=== PATIENT | female | born 1980 | race Caucasian/White ===

== ENCOUNTER 2016-10-18 13:10 | Emergency (ER) | payer SELFPAY ==
[~2016-10-18] VITALS: Ht 177.8 cm; Wt 117.9 kg
[2016-10-18] MEDS ORDERED: SUPER B COMPLE150 MG PO (13:29)
[2016-10-18] MEDS ORDERED: VITAMIN D1000 IU PO (13:29)
[2016-10-18] MEDS ORDERED: PRILOSEC20 M1 PO (13:29)
[2016-10-18] MEDS ORDERED: MONODOX100 MG PO (15:20)
== END 2016-10-18 18:53 | disposition home or self-care (01) ==
LOC: ED 13:10
DX: J20.9 Acute bronchitis, unspecified (principal); F17.200 Nicotine dependence, unspecified, uncomplicated; Z71.6 Tobacco abuse counseling; Z88.0 Allergy status to penicillin; Z88.1 Allergy status to other antibiotic agents

== ENCOUNTER → 2022-09-30 | Outpatient (CLI) | payer SELFPAY ==
[~2022-09-30] MED LIST: MONODOX100 MG PO; PRILOSEC20 M1 PO; SUPER B COMPLE150 MG PO; VITAMIN D1000 IU PO
[2022-09-30 16:37] LABS: HEMATOCRIT 43.3 % (37.0-47.0); MEAN CELL VOLUME 99.3 fl (81.0-99.0); MEAN CORPUSCULAR HGB 34.6 pg (27.0-31.0); MEAN CORPUSCULAR HGB CONC 34.9 g/dl (33.0-37.0); MEAN PLATELET VOLUME 10.6 fl (9.6-12.3); RED BLOOD COUNT 4.36 10*6/uL (4.10-5.10); RED CELL DISTRI WIDTH 11.8 % (0-14.5); WHITE BLOOD COUNT 7.2 10*3/uL (4.8-10.8)
[2022-09-30 17:00] LABS: ALKALINE PHOSPHATASE 75 U/L (46-116); BUN 10 mg/dl (9-23); CHLORIDE 104 mmol/L (98-107); CHOLESTEROL 219 mg/dL (<200); CREATININE 0.77 mg/dL (0.55-1.02); LDL CHOLESTEROL 116 mg/dL (9-159); POTASSIUM 4.1 mmol/L (3.4-5.1); SGPT/ALT 30 U/L (10-49); SODIUM 138 mmol/L (136-145); TOTAL PROTEIN 7.9 gm/dL (6.0-8.0); TRIGLYCERIDES 236 mg/dl (<150)
== END | disposition home or self-care (01) ==
LOC: LAB 16:17
PROVIDERS: ATTEND Family Medicine
DX: I10 Essential (primary) hypertension (principal); R06.02 Shortness of breath; R05.9 Cough, unspecified; E78.00 Pure hypercholesterolemia, unspecified

== ENCOUNTER 2025-04-30 16:40 | Emergency (ER) | payer SELFPAY ==
[~2025-04-30] VITALS: Wt 99.8 kg
[2025-04-30] MEDS ORDERED: ATORVASTATIN CA20 M1 PO (17:03)
[2025-04-30] MEDS ORDERED: BUSPAR5 MG PO (17:03)
[2025-04-30] MEDS ORDERED: CITALOPRAM10 MG PO (17:03)
[2025-04-30] MEDS ORDERED: METOPROLOL SUCC25 M2 PO (17:04)
[2025-04-30 18:02] LABS: BASO # 0.0 10*3/uL (0.0-0.1); BASO % 0.3 % (0.0-1.0); EOS # 0.1 10*3/uL (0.0-0.4); EOS % 1.5 % (1.0-4.0); MEAN CELL VOLUME 104.2 fl (81.0-99.0); MEAN CORPUSCULAR HGB 36.4 pg (27.0-31.0); MEAN PLATELET VOLUME 9.9 fl (9.6-12.3); MONO # 0.5 10*3/uL (0.1-1.0); MONO % 9.0 % (3.0-9.0); NEUT # 3.6 10*3/uL (2.3-7.9); NEUT % 61.0 % (47.0-73.0); NUCLEATED RED BLOOD CELL 0.0 % (0.0-0.0); NUCLEATED RED BLOOD CELL 0.0 10*3/uL (0.0-0.0); PLATELET COUNT AUTOMATED 142 10*3/uL (130-400); RED CELL DISTRI WIDTH 13.8 % (0-14.5)
[2025-04-30 18:31] LABS: BUN 10 mg/dl (9-23)
[2025-05-01] MEDS ORDERED: ELIQUIS5 M2 PO (12:42)
== END 2025-04-30 19:29 | disposition home or self-care (01) ==
LOC: ED 16:40
PROVIDERS: Nurse Practitioner Family
DX: I82.401 Acute embolism and thrombosis of unspecified deep veins of right lower extremity (principal); F17.200 Nicotine dependence, unspecified, uncomplicated; Z79.899 Other long term (current) drug therapy; Z88.0 Allergy status to penicillin; Z88.1 Allergy status to other antibiotic agents

== ENCOUNTER 2025-05-01 11:24 | Emergency (ER) | payer SELFPAY ==
[~2025-05-01] VITALS: Ht 177.8 cm; Wt 99.8 kg
[~2025-05-01 11:24] MED LIST changes: +ATORVASTATIN CA20 M1 PO; +BUSPAR5 MG PO; +CITALOPRAM10 MG PO; +METOPROLOL SUCC25 M2 PO
[2025-05-01] MEDS ORDERED: ELIQUIS5 M2 PO (12:42)
== END 2025-05-01 13:15 | disposition home or self-care (01) ==
LOC: ED 11:24
DX: I82.441 Acute embolism and thrombosis of right tibial vein (principal); Z79.899 Other long term (current) drug therapy; Z88.0 Allergy status to penicillin; Z88.1 Allergy status to other antibiotic agents

== ENCOUNTER 2025-08-01 01:30 | Inpatient (IN) | payer SELFPAY ==
[~2025-08-01] VITALS: Ht 178 cm; Wt 100.0 kg
[2025-08-01] VITALS (16 sets, daily range): BP systolic 102–205; BP diastolic 68–91
[~2025-08-01 01:30] MED LIST changes: +ELIQUIS5 M2 PO
[2025-08-01] MEDS ORDERED: ELIQUIS5 M1 PO (01:57)
[2025-08-01 02:01] LABS: MEAN CELL VOLUME 112.5 fl (81.0-99.0); MEAN CORPUSCULAR HGB 40.3 pg (27.0-31.0); MEAN PLATELET VOLUME 9.7 fl (9.6-12.3); NUCLEATED RED BLOOD CELL 0.0 % (0.0-0.0); NUCLEATED RED BLOOD CELL 0.0 10*3/uL (0.0-0.0); PLATELET COUNT AUTOMATED 187 10*3/uL (130-400); RED CELL DISTRI WIDTH 13.5 % (0-14.5)
[2025-08-01 02:17] LABS: MANUAL DIFF REFLEX YES
[2025-08-01 02:21] LABS: BUN 8 mg/dl (9-23)
[2025-08-01 02:22] LABS: PLATELET SUFFICIENCY NORMAL (NORMAL)
[2025-08-01] MEDS ORDERED: SODIUM CHLORIDE 0.9% 1,000 ML IV ONE (02:25)
[2025-08-01] MEDS ORDERED: POTASSIUM CHLORIDE 20 MEQ TAB PO ONE ×2 (03:10→10:55)
[2025-08-01] MEDS ORDERED: MAGNESIUM SULFATE 50 ML IV ONE (03:10)
[2025-08-01] MEDS ORDERED: DILTIAZEM HCL IN NACL,ISO-OSM 100 ML IV SCH (03:45)
[2025-08-01] MEDS ORDERED: Acetaminophen/Hydrocodone 5 MG/325 MG TABLET PO PRN (05:20)
[2025-08-01] MEDS ORDERED: ACETAMINOPHEN 650 MG SUPP R PRN (05:20)
[2025-08-01] MEDS ORDERED: ACETAMINOPHEN 325 MG TAB PO PRN (05:20)
[2025-08-01] MEDS ORDERED: Ondansetron Hydrochloride 4 MG/2 ML VIAL IV PRN (05:20)
[2025-08-01] MEDS ORDERED: BISACODYL 5 MG TAB PO PRN (05:20)
[2025-08-01] MEDS ORDERED: BISACODYL 10 MG SUPP R PRN (05:20)
[2025-08-01] MEDS ORDERED: IOHEXOL 350 MG/ML 100 ML VIAL IV ONE ×2 (05:40→06:07)
[2025-08-01] MEDS ORDERED: SODIUM CHLORIDE 0.9% 100 ML BAG IV ONE (05:40)
[2025-08-01] MEDS ORDERED: SODIUM CHLORIDE 0.9% 100 ML IV ONE (06:07)
[2025-08-01] MEDS ORDERED: METHOCARBAMOL 750 MG TAB PO PRN (06:10)
[2025-08-01] MEDS ORDERED: hydrOXYzine 50 MG CAP PO PRN (06:10)
[2025-08-01] MEDS ORDERED: FOLIC ACID 1 MG TAB PO ONE (06:10)
[2025-08-01] MEDS ORDERED: Dicyclomine Hydrochloride 20 MG TAB PO PRN (06:10)
[2025-08-01] MEDS ORDERED: diazePAM 10 MG/2 ML SYR IV PRN (06:10)
[2025-08-01] MEDS ORDERED: MAGNESIUM SULFATE 100 ML IV ONE ×2 (06:10→07:15)
[2025-08-01] MEDS ORDERED: METOPROLOL SUCCINATE XR 50 MG TAB PO SCH (06:40)
[2025-08-01 07:02] LABS: VITAMIN D, 25-HYDROXY 36.6 ng/mL (30-100)
[2025-08-01 08:29] LABS: BUN 8 mg/dl (9-23); FREE T4 1.28 ng/dl (0.89-1.76); LDL CHOLESTEROL 26 mg/dL (9-159); SGPT/ALT 28 U/L (5-49)
[2025-08-01] MEDS ORDERED: APIXABAN 5 MG TAB PO SCH (10:00)
[2025-08-01] MEDS ORDERED: busPIRone Hydrochloride 5 MG TAB PO SCH (10:00)
[2025-08-01] MEDS ORDERED: MULTIVITAMIN 1 TAB TAB PO SCH (10:00)
[2025-08-01] MEDS ORDERED: CITALOPRAM 20 MG TAB PO SCH ×2 (10:00→22:00)
[2025-08-01] MEDS ORDERED: ATORVASTATIN CALCIUM 20 MG TAB PO SCH (22:00)
[2025-08-02] VITALS: BP 160/90
[2025-08-02 06:12] LABS: BUN 5 mg/dl (9-23)
[2025-08-02 09:06] VITALS: BP 144/90
[2025-08-02 11:37] VITALS: BP 137/83
[2025-08-02 16:00] VITALS: BP 143/95
[2025-08-02 20:00] VITALS: BP 148/97
[2025-08-03] VITALS: BP 116/62
[2025-08-03 06:04] LABS: BUN 8 mg/dl (9-23)
[2025-08-03 08:00] VITALS: BP 119/70
[2025-08-03 12:00] VITALS: BP 130/94
[2025-08-03 16:00] VITALS: BP 139/80
[2025-08-03 20:00] VITALS: BP 153/94
[2025-08-04] VITALS: BP 144/97
[2025-08-04 08:00] VITALS: BP 118/66
[2025-08-04] MEDS ORDERED: TAB-A-VITE TA400 MCG PO (10:45)
[2025-08-04] MEDS ORDERED: METOPROLOL SUCC50 M1 PO (10:45)
[2025-08-04 11:37] VITALS: BP 123/67
== END 2025-08-04 13:20 | disposition home or self-care (01) | DRG 308 ==
LOC: ED 01:30 → EDHOLD 03:55 → 4E 03:55
PROVIDERS: Internal Medicine; Student in an Organized Health Care Education/Training Program; ADMIT Family Medicine; ATTEND Family Medicine
DX: I48.91 Unspecified atrial fibrillation (principal); I26.99 Other pulmonary embolism without acute cor pulmonale; F10.139 Alcohol abuse with withdrawal, unspecified; R17 Unspecified jaundice; R60.0 Localized edema; E87.6 Hypokalemia; E83.42 Hypomagnesemia; E78.5 Hyperlipidemia, unspecified; F41.9 Anxiety disorder, unspecified; I10 Essential (primary) hypertension; D75.89 Other specified diseases of blood and blood-forming organs; Z88.0 Allergy status to penicillin; Z88.8 Allergy status to other drugs, medicaments and biological substances; Z82.49 Family history of ischemic heart disease and other diseases of the circulatory system; Z86.718 Personal history of other venous thrombosis and embolism; Z79.01 Long term (current) use of anticoagulants